=== PATIENT | male | born 1970 | race Caucasian/White ===

== ENCOUNTER 2022-04-11 16:02 | Emergency (ER) | payer SELFPAY ==
[~2022-04-11] VITALS: Ht 177.8 cm; Wt 109.0 kg
[2022-04-11 17:52] LABS: BASOPHILS % 0.6 % (0.0-2.0); EOSINOPHILS % 2.8 % (0.0-5.0); HEMATOCRIT. 47.4 % (42.0-52.0); LYMPHOCYTES % 27.6 % (20.0-50.0); MEAN CORPUSCULAR HEMOGLOBIN 27.8 pg (28.0-32.0); MEAN CORPUSCULAR VOLUME 82.3 fL (80.0-94.0); MEAN PLATELET VOLUME 8.4 fl (7.4-10.4); MONOCYTES % 6.8 % (2.0-8.0); NEUTROPHILS % 62.2 % (40.0-76.0); PLATELET 186 x1000/uL (130-400); RED BLOOD CELL COUNT 5.75 mill/uL (4.7-6.1)
[2022-04-11 18:02] LABS: CHLORIDE 107 mEq/L (98-107)
[2022-04-11] MEDS ORDERED: FAMOTIDINE 20MG/2ML VIAL IV ONE (18:30)
[2022-04-11 20:00] VITALS: BP 149/86
== END 2022-04-11 21:39 | disposition home or self-care (01) ==
LOC: ER 16:02
DX: R07.89 Other chest pain (principal); I10 Essential (primary) hypertension
CPT/HCPCS: 36415; 71045; 80053; 83690; 83880; 84484; 85025; 93005; 96374; 99285; J3490

== ENCOUNTER 2022-05-28 16:13 | Emergency (ER) | payer SELFPAY ==
[~2022-05-28] VITALS: Ht 175.3 cm; Wt 109.0 kg
[2022-05-28] MEDS ORDERED: ACETAMINOPHEN 325MG TABLET PO ONE (20:30)
[2022-05-28] MEDS ORDERED: METHOCARBAMOL 500MG TABLET PO ONE (20:30)
[2022-05-28] MEDS ORDERED: IBUPROFEN 400MG TABLET PO ONE (20:30)
[2022-05-28] MEDS ORDERED: METH-653 MT (20:33)
[2022-05-28] MEDS ORDERED: ACET-2708 MT (20:33)
[2022-05-28] MEDS ORDERED: IBUP-2028 MT (20:33)
[2022-05-28 21:10] VITALS: BP 112/78
== END 2022-05-28 21:10 | disposition home or self-care (01) ==
LOC: ER 16:33
DX: M54.50 Low back pain, unspecified (principal)
CPT/HCPCS: 99284